=== PATIENT | female | born 1975 | race Two or more races ===

== ENCOUNTER → 2024-12-11 | Outpatient (CLI) | payer MEDICAID, SELFPAY ==
--- NOTE | 2024-12-11 09:30 | XR_ITS ---
Examination: Breast ultrasound, unilateral, right complete Date and time of exam: December 11, 2024 1006 hrs. Indications: Mammogram. July 21, 2024 15 mm focal asymmetry upper right breast Technique: Real-time akins scale ultrasonographic imaging performed right breast including all 4 quadrants as well as nipple retroareolar and axillary region. Findings: No cystic or solid mass Impression: BI-RADS Category 1: Negative study
--- NOTE | 2024-12-11 10:00 | XR_ITS ---
Examination: Diagnostic digital mammography, unilateral, right Computer aided detection 3-D breast Tomosynthesis, unilateral Date and time of exam: 12/11/2024, 10:21 AM Comparisons: April 2017 through July 2014 Indications: Abnormality seen on prior screening exam. Technique: Nonmagnified MLO, CC views of the right breast have been obtained, reconstructed from 3-D Tomosynthesis images. R2 computer aided detection program utilized for evaluation of suspicious masses and/or abnormal calcifications. 3-D Tomosynthesis images obtained. Technologist: Findings: The breasts are heterogeneously dense, which may obscure small masses. No evidence of abnormal masses or suspicious calcifications. The previously described asymmetry does not persist on spot compression views and represents superimposition of normal fibroglandular tissue. Impression: BI-RADS category 1: Negative findings (within normal) Recommend 1 year follow-up mammogram
== END | disposition home or self-care (01) ==
PROVIDERS: PCP Physician Assistant; Referring Provider Physician Assistant; Visit Provider Physician Assistant
DX: R92.311 Mammographic fatty tissue density, right breast (principal); N64.89 Other specified disorders of breast
CPT/HCPCS: 76641; 77061; 77065; G0279

== ENCOUNTER → 2025-09-12 | Outpatient (CLI) | payer MEDICAID, SELFPAY ==
--- NOTE | 2025-09-12 14:30 | XR_ITS ---
Examination: Retroperitoneal ultrasound, complete Technique: Multiple high resolution grayscale images of the retroperitoneum obtained, including kidneys and bladder. Exam date and time: September 12, 2025, 1441 hours INDICATIONS: Left flank pain beginning 4 months ago FINDINGS: Right kidney 11.8 cm renal cortex 2.7 cm Mild right hydronephrosis, 5 mm upper pole calculus Left kidney 10.8 cm renal cortex 2.8 cm No hydronephrosis No bladder mass or bladder calculi Bladder prevoid volume 581 cc IMPRESSION: Mild right hydronephrosis 5 mm upper pole right renal calculus
== END | disposition home or self-care (01) ==
PROVIDERS: PCP Physician Assistant; Referring Provider Physician Assistant; Visit Provider Physician Assistant
DX: N13.30 Unspecified hydronephrosis (principal); N20.0 Calculus of kidney
CPT/HCPCS: 76770